=== PATIENT | male | born 1970 | race Caucasian/White ===

== ENCOUNTER 2023-11-18 13:00 | Inpatient (IN) | payer OTHER, SELFPAY ==
[2023-11-16] VITALS (10 sets, daily range): BP systolic 105–131; BP diastolic 72–88; BMI 24.9
[2023-11-16 15:38] LABS: Hematocrit 43.4 % (39.0-52.0); Mean Corp Hgb Conc. 36.9 g/dL (33.0-37.0); Mean Corpuscular Hgb 30.7 pg (27.0-31.0); Mean Corpuscular Volume 83.3 fL (80.0-94.0); Mean Platelet Volume 9.4 fL (7.4-10.4); Platelet Count 309 10^3/uL (130-400); Red Blood Cell Count 5.21 10^6/uL (4.70-6.10); Red Cell Dist. Width 12.3 % (11.5-14.5); White Blood Cell Count 24.8 10^3/uL (4.8-10.8)
--- NOTE | 2023-11-16 15:40 | ED.GENMED ---
History of Present Illness
General
Chief Complaint: Abdominal Pain
Source: patient
Exam Limitations: none
Time Seen by Provider: 11/16/23 15:15
Nursing documentation reviewed up to this point in time: agreed with
Travel History
Have you had any contact with someone who has COVID-19?: No
Do you have any symptoms of coronavirus? Fever > 100 degrees, chills, cough, shortness of breath, sore throat, loss of taste or smell, muscle aches, or headache?: No
History of Present Illness
History of Present Illness:
PPatient to ED with complaint of RLQ abdominal pain. Symptoms started Wed night. He reports hanging a heavy TV earlier on . Boyd fine. Wed eveining he reported generalized abdominal pain. Saturday AM pain was worsening. Vomitid 3 times.
he continued to have vomiting, reports fever(subjective) and chills. no diarrhea. States he thought he was constipated so he took Miralax this AM. BM x 1 without blood. Brought to ED by spouse for eval. Pain is now localized to RLQ.
Past History
Past History
ED Past Medical History: Psychiatric
ED Past Surgical History: Other (eyelid surgery)
Social History
Tobacco: Non-smoker
Alcohol: Occasional
Drug: None
Personal:
Living: with family
Employment: Employed
Review of Systems
Review of Systems
Allergies reviewed?: Yes
All Other Systems: ROS reviewed and negative except as documented in HPI and ROS
Constitutional: Reports chills
EENT: Reports no symptoms
Respiratory: Reports no symptoms
Cardiac: Reports no symptoms
ABD/GI: Reports abdominal pain (RLQ pain ), nausea and vomiting
: Reports no symptoms
Musculoskeletal: Reports no symptoms
Skin: Reports no symptoms
Neurological: Reports no symptoms
Psychiatric: Reports no symptoms
Phy Exam
General Physical Exam
General Presentation: well appearing and mild distress
General age: appears stated age
General Skin: warm and dry
General Habitus: normal
General Mental: alert
General Hydration: appears well hydrated
Cardiovascular Exam
Cardiovascular Exam: regular rate/rhythm and no edema
Gastrointestinal Exam
Gastrointestinal Exam: normal bowel sounds, no pulsatile mass, non distended, no cva tenderness and guarding
Palpation: left upper quadrant: No tenderness, left lower quadrant: No tenderness, right upper quadrant: Mild tenderness and right lower quadrant: Moderate tenderness
Musculoskeletal Exam
Musculoskeletal Exam: full ROM and neuro vasc intact
Skin Exam
Skin Exam: normal color, warm/dry and no rash
Psychiatric Exam
Psychiatric Exam: normal mood/affect
Course
Orders/Labs/Results
Orders:
Orders
11/16/23 Dinner
Regular
11/16/23 15:28
Complete Blood Count/With Diff Urgent
Comprehensive Metabolic Panel Urgent
Lipase Urgent
Comment: LIPASE ADDED ON BY FLOOR 4:20PM 11-16-23
Manual Differential Urgent
11/16/23 15:32
Urinalysis Reflex To Culture Urgent
Date Specimen was Collected: 11/16/23
Time Specimen was Collected: 15:27
Urine Microscopic Reflex Cult Urgent
11/16/23 15:39
0.9% Sodium Chloride 1000 ml [Nss] 1,000 ml IV BOLUS
HYDROmorphone [Dilaudid] 0.5 mg IV NOW STA
Iohexol [Omnipaque] See Protocol PO NOW STA
Ondansetron Injectable [Zofran] 4 mg IV NOW STA
11/16/23 15:40
CT Abd/pel W Iv And Oral Contr Urgent
Comment:
Reason For Exam: RLQ abdominal pain
11/16/23 16:16
Piperacillin/Tazo 3.375 Gram [Zosyn] 3.375 gram in 50 ml IV NOW
11/16/23 16:26
Lactic Acid Urgent
11/16/23 18:34
0.9% Sodium Chloride 1000 ml [Nss] 1,000 ml IV BOLUS
11/16/23 18:58
HYDROmorphone [Dilaudid] 0.5 mg IV NOW STA
11/16/23 19:25
Admit/Transfer Patient As Directed
Co-Sign Provider:
Level of Care: Observation services
Assign to:: Medical/Surgical
Physician / Group: Kee Montelongo
Diagnosis: Acute Appendicitis without perforation
11/16/23 19:27
Code Status As Directed
Resuscitation Status: Full Code
11/16/23 20:56
Lactated Ringers [Lr] 1,000 ml IV 100 mls/hr
11/16/23 20:56
Activity As Directed
Activity Level: Out of Bed-Early Mobility
Anti-embolism (YUN) Hose As Directed
Type: Thigh high
Intake/ Output As Directed
Frequency: Per unit guidelines
Pneumatic Compression Sleeves As Directed
Type: Thigh high
Vital Signs As Directed
Frequency: Per unit guidelines
Rx Incentive Spirometry [RESP] Routine
Frequency: q1h while awake
# of times per hour: 10
DX Deep Vein Thrombosis Video Routine
11/17/23 00:00
Piperacillin/Tazo 3.375 Gram [Zosyn] 3.375 gram in 50 ml IV Q6
11/17/23 Breakfast
NPO
Allow oral meds: Yes
Allow clear liquids: No
NPO with Ice Chips: No
Complete Blood Count/With Diff IN AM
Comprehensive Metabolic Panel IN AM
Abnormal Lab Results
11/16/23 11/16/23
15:28 15:32
WBC 24.8 H 10^3/uL
(4.8-10.8)
Abs Neuts (Manual) 22.3 H 10^3/uL
(1.4-6.5)
Segmented Neutrophils 88 H %
(42-75)
Lymphocytes (Manual) 8 L %
(20-51)
Sodium 134 L mmol/L
(135-145)
Creatinine 0.5 L mg/dL
(0.7-1.3)
Glucose 151 H mg/dl
(70-99)
Total Bilirubin 1.6 H mg/dl
(0.2-1.3)
Urine Ketones 1+ A
(Negative)
Ur Occult Blood Reflex Trace A
(Negative)
Urine Bilirubin 1+ A
(Negative)
Urine Urobilinogen 4+ A
(Neg - 1+)
Leukocyte Esterase Rfl Trace A
(Negative)
Urine Bacteria (Reflex) Few A
(Negative)
Urine Albumin (Reflex) 1+ A
(Neg - Trace)
11/16/23 15:28
11/16/23 15:28
Vital Signs
Initial and Last Documented VS:
Initial Vital Signs
Temp Pulse Resp BP Pulse Ox
98.3 F 141 18 131/88 98
11/16/23 15:12 11/16/23 15:12 11/16/23 15:12 11/16/23 15:12 11/16/23 15:12
Last Documented Vital Signs
Temp Pulse Resp BP Pulse Ox
98.3 F 114 18 124/83 98
11/16/23 20:55 11/16/23 20:55 11/16/23 20:55 11/16/23 20:55 11/16/23 20:55
*Radiology
Radiology exam reviewed: radiology read reviewed
*Pulse Oximetry
Patient hypoxic: no
*Critical Care Note
Total Time (30-74mins, 75-104mins- exclusive of procedures): Not Applicable
Update Note
Update Note:
Radiology report: acute appendicitis. Dr. Reginald notified. Requests admission to his service. NPO, continue Zosyn, IVF. For OR in AM. House provider notified and admission completed.
ED Attending Note
-
Portions of this chart may have been created with voice recognition software.� Occasional wrong word or��sound alike� substitutions may have occurred due to the inherent limitations of voice recognition software.
Discharge Plan
Departure
Patient Disposition: Admit
Date of Disposition: 11/16/23
Time of Disposition: 18:58
Presentation/result/management discussed w/ accepting MD/DO: Dr. Montelongo
Patient with high blood pressure during this ER visit?: No
Condition: Fair
Covid-19: Not Applicable
Discharge Problem:
Acute appendicitis
Interventions
Interventions:
*Risk Screen - Suicide Last Done: 11/16/23 19:59
*General Assessment Last Done: 11/16/23 19:59
*Neglect/Abuse Screening Last Done: 11/16/23 19:59
*ED COVID-19 Vaccine History Last Done: 11/16/23 19:59
*Nursing Disposition Last Done: 11/16/23 20:56
YT-Osrlng-Mxcipgbpje Assessment Last Done: 11/16/23 15:36
Discharge Date and Time
Discharge Date/Time: 11/16/23 20:56
[2023-11-16 15:44] LABS: Urine Albumin 1+ (Neg - Trace); Urine Bilirubin 1+ (Negative); Urine Character Clear (Clear); Urine Glucose Negative (Negative); Urine Ketone 1+ (Negative); Urine Leukocyte Trace (Negative); Urine Nitrite Negative (Negative); Urine Occult Blood Trace (Negative); Urine Urobilinogen 4+ (Neg - 1+)
[2023-11-16 15:46] LABS: Urine Color Orange
[2023-11-16] MEDS: OMNIPAQUE 50 ML PO (15:47)
[2023-11-16] MEDS: ZOFRAN 4 MG IV (15:47)
[2023-11-16] MEDS: DILAUDID 0.5 MG IV ×2 (15:48→19:02)
[2023-11-16] MEDS: NSS 1000 IV ×2 (15:48→18:35)
[2023-11-16 15:51] LABS: Urine Bacteria Few (Negative); Urine Mucus Many; Urine Red Blood Cell 0-2 /HPF (0-2)
[2023-11-16 15:52] LABS: ALT (SGPT) 37 U/L (0-50); AST (SGOT) 37 U/L (17-59); Albumin 4.4 g/dl (3.5-5.0); Alkaline Phosphatase 119 U/L (38-126); Blood Urea Nitrogen 14 mg/dl (9-20); Calcium 9.1 mg/dl (8.4-10.2); Carbon Dioxide 22 mmol/L (22-30); Chloride 103 mmol/L (98-107); Glucose 151 mg/dl (70-99); Potassium 3.7 mmol/L (3.5-5.1); Sodium 134 mmol/L (135-145); Total Bilirubin 1.6 mg/dl (0.2-1.3); Total Protein 7.8 g/dl (6.3-8.2); eGFR > 60.00
[2023-11-16 16:19] LABS: Absolute Neutrophils -Man Diff 22.3 10^3/uL (1.4-6.5); Band Neutrophils 2 % (0-3); Lymphocytes 8 % (20-51); Monocytes 2 % (2-9); Segmented Neutrophils 88 % (42-75)
[2023-11-16 16:20] LABS: Normal RBC Morphology Yes; Platelets Checked Yes; Total Cells Counted 100
[2023-11-16] MEDS: ZOSYN 50 IV ×2 (16:26→23:18)
[2023-11-16 16:45] LABS: Lactic Acid 1.4 mmol/L (0.7-2.0)
[2023-11-16 16:52] LABS: Lipase 25 U/L (23-300)
--- NOTE | 2023-11-16 19:55 | HP.FOC2 ---
Addendum entered and electronically signed by Kee Montelongo MD 11/17/23 08:50:
I saw and examined the patient independently.
The Credit Counselor's note was reviewed and I agree with the note, assessment and plan except where noted below.
Comment: This is a 52-year-old male who presents with hypogastric abdominal pain now more focal to the right lower quadrant pain that began Saturday night. Associated nausea vomiting, fevers at home as well as diarrhea. Exam, imaging and blood
work all consistent with likely ruptured appendicitis with free fluid in the right paracolic gutter and focal peritonitis extending from the right lower quadrant up to the right upper quadrant.
Will plan for a laparoscopic appendectomy today.
N.p.o., IV fluids, IV Zosyn.
Risks/Benefits/Alternatives, expected postoperative course and possible complications (bleeding, infection, injury to surrounding structures, acute/chronic pain, likely need of a drain) discussed at length. Patient wishes to proceed with surgery.
All questions answered. Consent obtained.
I spent roughly 75 minutes in total for the care of this patient today including direct patient care and counseling, reviewing labs, imaging, coordination of care, as well as documentation.
Original Note:
Focused History & Physical
Chief Complaint
HPI:
Chief Complaint: abdominal pain
HPI / Indication for Planned Procedure: 52 yom comes in with RLQ abdominal pain started on Saturday night, initially thought it was hernia from lifting heavy TV earlier in the day. vomited x3, Saturday continued with vomiting and subjective
fever and chills. Last BM this morning. Currently rates pain 8/10 with movement and 1/[address] findings compatible with appendicitis with a high degree of confidence. There is adjacent edema with no evidence of a localized abscess.
7 mm cyst within the superior left lobe liver, for which no further imaging follow-up is recommended.
Relevant Past Medical History: Other (Depression)
Relevant Social History: Negative
Relevant Family History: Negative
Relevant Past Surgical History: Negative
Review of Systems
Review of Pertinent Systems: All Systems Negative Except for the Following Positives (RLQ abdominal pain, + fever +chills)
Medication
See Medication form for detailed medications: Yes
Medication List (including Herbals & OTC):
Cymbalta - unknown dose QD
Medications Reviewed: Yes
Allergies and Reactions
Patient has Allergies: No
Noted Allergies and Reactions:
Allergy/AdvReac Type Severity Reaction Status Date / Time
No Known Allergies Allergy Unverified 11/16/23 15:13
Pertinent Physical Exam
All Other Systems: Negative
Head/Neck: Normal
Lungs: Normal
Heart: Normal
Abdomen: Other (RLQ pain)
Extremities: Normal
Neurological: Normal
Diagnosis / Assessment
Acute appendicitis - without perforation
Plan / Procedure
Admit to service Dr. Kee Montelongo
M/S
#Appendicitis
NPO after midnight
LR 100ml/hr
Zosyn q6hr
WBC 24.8
CBC BMP in AM
Pain control - dilaudid 0.5mg prn, Toradol 15mg prn
#Depression - continue Cymbalta - dose unknown at this time.
Full code
DVT prof - SCD
[2023-11-16] MEDS: TORADOL 15 MG IV (21:34)
[2023-11-16] MEDS: LR 1000 IV (21:34)
[2023-11-16] MEDS: DILAUDID 1 MG IV (23:18)
[2023-11-17] VITALS (14 sets, daily range): BP systolic 0–131; BP diastolic 72–84
[2023-11-17] MEDS: ZOSYN 50 IV ×4 (05:04→23:24)
[2023-11-17] MEDS: DILAUDID 1 MG IV ×4 (05:32→23:18)
[2023-11-17 07:18] LABS: % Basophils 0.3 % (0-2); % Eosinophils 0.2 % (0-6); % Immature Granulocytes 0.4 % (0-0.5); % Lymphocytes 7.4 % (20.5-51.1); % Monocytes 6.3 % (1.7-9.3); % Neutrophils 85.4 % (42.2-75.2); Absolute Basophils 0.1 10^3/uL (0-0.2); Absolute Immature Granulocytes 0.1 10^3/uL (0-0.05); Absolute Lymphocytes 1.2 10^3/uL (1.2-3.4); Absolute Neutrophils 13.9 10^3/uL (1.4-6.5); Hematocrit 37.7 % (39.0-52.0); Hemoglobin 13.2 g/dL (13.0-18.0); Mean Corpuscular Hgb 30.6 pg (27.0-31.0); Mean Corpuscular Volume 87.3 fL (80.0-94.0); Mean Platelet Volume 10.1 fL (7.4-10.4); Nucleated Red Blood Cells % 0 % (-); Platelet Count 267 10^3/uL (130-400); Red Blood Cell Count 4.32 10^6/uL (4.70-6.10); Red Cell Dist. Width 12.7 % (11.5-14.5); White Blood Cell Count 16.3 10^3/uL (4.8-10.8)
[2023-11-17 08:05] LABS: ALT (SGPT) 26 U/L (0-50); AST (SGOT) 25 U/L (17-59); Albumin 3.3 g/dl (3.5-5.0); Alkaline Phosphatase 105 U/L (38-126); Blood Urea Nitrogen 14 mg/dl (9-20); Calcium 7.7 mg/dl (8.4-10.2); Carbon Dioxide 25 mmol/L (22-30); Chloride 103 mmol/L (98-107); Estimated Creatinine Clearance > 125 ml/min; Glucose 97 mg/dl (70-99); Potassium 3.4 mmol/L (3.5-5.1); Sodium 134 mmol/L (135-145); Total Bilirubin 1.3 mg/dl (0.2-1.3); eGFR > 60.00
--- NOTE | 2023-11-17 10:54 | W.SUR.PREOP ---
Pre-Operative Surgical Note
-
I have examined this patient prior to the performance of the scheduled procedure.
The patient's condition is unchanged from the time of the current History and
Physical and the patient is able to undergo the scheduled procedure.
--- NOTE | 2023-11-17 10:54 | W.IMMPOSTOP ---
Surgical Immed Post Op Note
-
Primary Surgeon: Kee Montelongo MD
Assisting Surgeon: None
Pre-op Diagnosis: Acute appendicitis
Post-op Diagnosis: Perforated appendicitis
Procedure Performed: Laparoscopic appendectomy
Anesthesia Type: General
Specimen / Cultures:
1. Right lower quadrant wound culture
2. Appendix (in 2 pieces)
Estimated Blood Loss: 7 cc
Complications: None
Operative Findings: Perforated appendicitis with focal purulent and feculent peritonitis. Appendix rupture to mid body, after some minimal ileocecal mobilization the appendiceal stump was identified and traced to its origin at the cecum where he
was ligated with 0 PDS suture x 2.
POST OP PLAN:
Imaging: None
Labs: Routine AM
Diet: Clears today, will advance to Regular as tolerated
Analgesia: Tylenol 650mg q6 Linda, Mary 5mg q6 PRN, Dilaudid 0.5mg q2h PRN
Neuro/vascular checks: q4h
AC/AP: Hold Therapeutic AC, Ok for DVT PPx
Activity: Ad Trinidad
Wound/Incisions/Drains: Routine, LUPIS to bulb suction
Abx: Zosyn or p.o. equivalent x 7 days
Dispo: RNF, anticipate discharge home tomorrow with a LUPIS bulb.
--- NOTE | 2023-11-17 10:57 | OR.RPT ---
Operative Report
Operative Report
Patient Name: Bob Ma
: 1970
Date of Operation: 11/17/2023
Preoperative Diagnosis: Acute Appendicitis
Postoperative Diagnosis: Perforated appendicitis
Procedure(s):
Laparoscopic Appendectomy
Surgeon(s):
Dr. Montelongo
Bundles Hanger(s):
None
Anesthesia: General
Estimated Blood Loss: 7 cc
Urine Output: None
Drains/Lines/Implants: 19 Turkmen round Baner into the pelvis and up right colic gutter
Specimens:
1. Appendix
2. Right lower quadrant wound culture
HPI/Surgical Indications:
This is a 52 year old male who presents with 4 days of worsening right lower quadrant abdominal pain. Exam, labs and imaging are consistent with acute appendicitis. Risks/Benefits/Alternatives were discussed at length, and the patient agreed to
proceed with surgery.
Findings:
Acute perforated appendicitis, with focal/localized purulent and feculent peritonitis
Procedure Description:
The patient was placed in the supine position, with the left arm tucked, and general anesthesia was induced. The abdomen was prepared and draped in a sterile fashion so as to expose the entire abdomen. A surgical time out was taken. Abdominal access
was obtained with an 12mm infra-umbilical Lana Entry. After confirming no injury on entrance, two additional 5mm ports were placed in the suprapubic area just off midline and in the left lower quadrant. The patient was placed in Trendelenberg with
the right slightly up. There was a phlegmonous area over the right lower quadrant with small bowel/ligament of Treves as well as part of the sigmoid colon socked in over the presumed area of the appendix. The structures were carefully taken down
revealing fairly large abscess pocket. The appendix tip appeared completely gangrenous and was clearly perforated. Wound cultures were taken x 2. The mesentery was identified and ligated with the LigaSure. The distal half of the appendix was
removed and placed just behind the cecum. It was difficult to identify the proximal tip of the appendix pressing down the area we were able to see pus emanating from small ostia this was flush with the base of the cecum so I began freeing up the
cecum from lateral to medial direction. At this point I was able to free off the proximal body of the appendix off of the cecum and then get onto fairly healthy appearing appendix. There were a few stool balls/appendicoliths that fell out of the
appendiceal stump as it was being manipulated, these were removed. The appendix was traced to its origin at the base of the cecum which appeared very healthy. This was ligated using 2-0 PDS Endoloops followed by the LigaSure. The 2 portions of
the appendix were placed in an Endo Catch bag and the specimen was passed off the field. The operative field was irrigated gently and suctioned until clear. There was some diffuse but minimal oozing from the surrounding structures secondary to the
inflammation. I also checked the right upper quadrant which appeared free of any gross contamination as was the pelvis. A 19 Turkmen round Abner drain was then introduced through the suprapubic port and pulled deep into the pelvis and then up the
right colic gutter and secured at the skin with a 2-0 nylon suture. Hemostasis was confirmed and the ports were removed under visualization. The specimen was passed off the field. The umbilical port was closed with a [id number] 0-PDS and the
skin for all three ports was closed with interrupted monocryls and covered with dermabond. The patient was awoken from anesthesia in good condition and transported to the recovery area.
I was the attending physician and performed the procedure with no assistance. I was present for all portions of the case
Kee Montelongo MD
--- NOTE | 2023-11-17 12:00 | PTCARENOTE ---
pt received post op from PACU, post laprascopic appendectomy. AAOX3. denies pain at this time. incision sites CICI with surgical glue, CDI. LUPIS drain lower mid abdomen- small amount of sanguinous drainage. LR infusing at 100 ml/hr.
--- NOTE | 2023-11-17 12:18 | CM ---
CM met with pt and spouse at bedside.
Pt resides with spouse and kids (ages 15 and 17).
Pt is independent at baseline. 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
Pt follows with Dr. Dove and pharmacy is [facility] in [place].
Obs letter reviewed with pt and spouse and signed copy placed on chart. Copy provided.
Discharge dispo home no needs. CM to watch for needs.
[2023-11-17] MEDS: LR 1000 IV ×2 (12:21→21:23)
[2023-11-17] MEDS: TORADOL 15 MG IV (16:13)
[2023-11-17] MEDS: ERYTHROMYCIN 0.5% OPHTHALMIC OINTMENT 1 APPLIC RIGHT EYE ×2 (17:42→21:21)
--- NOTE | 2023-11-17 18:00 | PTCARENOTE ---
pt reports intermittent intense bladder spasms/penis pain that is sharp and burning, Dr Montelongo notified, stated to take LUPIS drain off suction (do not squeeze bulb). pt reports relief after this was done.
[2023-11-17] MEDS: DILAUDID 0.5 MG IV (19:50)
[2023-11-18] MEDS: TORADOL 15 MG IV (00:30)
[2023-11-18 03:31] VITALS: BP 111/75
[2023-11-18] MEDS: DILAUDID 1 MG IV ×4 (04:56→14:59)
[2023-11-18] MEDS: ZOSYN 50 IV ×4 (05:36→23:29)
--- NOTE | 2023-11-18 06:10 | PTCARENOTE ---
Updated Dr Montelongo regards of Patient having c/o intermittent severe pain at the LUPIS drain site down to his penis with ambulation. Medicated with ordered Dilaudid/ Toradol IV with good relief. No pain when resting in bed. kept suction off . 20ml
output from drain. No new orders at this time.
[2023-11-18] MEDS: ERYTHROMYCIN 0.5% OPHTHALMIC OINTMENT 1 APPLIC RIGHT EYE (07:59)
[2023-11-18 08:00] VITALS: BP 121/90
--- NOTE | 2023-11-18 08:51 | W.PN.GS2 ---
Today's Communication / Plan
-
Advance diet
Pain management
Assessment / Plan
-
52 yo male who presented with acute appendicitis now POD #1 lap appi with perforated appendicitis with focal purulent and feculent peritonitis noted in the OR
AFVSS
Labs Pending
+flatus, no nausea or vomiting
Pain secondary to drain
--Will reposition LUPIS drain at bedside
--Increase Dilaudid frequency, will transition to PO agents once pain improved
--Advance to regular diet and follow for tolerance
--Continue IVF until tolerating PO, decreased rate to 75ml/hr
--VTE ppx with lovenox and SCD's
--OOB/Ambulate
--Dispo to home once pain improved and tolerating diet
Subjective Data
-
Date of Service: November 18, 2023
Patient seen and examined at bedside with Dr. Montelongo. Significant pain in the pelvis, somewhat better with release of suction from LUPIS drain. Denies n/v. Passing flatus. Right eye dryness post op, now much improved.
Objective Data
-
Intake and Output
11/17/23 11/18/23 11/19/23
06:59 06:59 06:59
Intake Total 1859 417 / 417
Output Total 635 / 635
Balance 1859 -218 / -218
Intake:
Oral fluids 960 / 960 242 / 242
IV fluids (Total) 900 / 900 75 / 75
norm 75 / 75
IV piggybacks 100 / 100
Output:
Drain Output (Total) 60 / 60
Lower Abdomen Stevie-Doherty 60 / 60
Urine, Voided 575 / 575
Other:
Number of approximated MODERATE 2 1
amounts of urine
Vital Signs
Temp Pulse Resp BP Pulse Ox
97.9 F 96 16 121/90 96
11/18/23 08:00 11/18/23 08:00 11/18/23 08:00 11/18/23 08:00 11/18/23 03:31
Calcium 7.7 mg/dl (8.4-10.2) L 11/17/23 06:01
Total Bilirubin 1.3 mg/dl (0.2-1.3) 11/17/23 06:01
AST 25 U/L (17-59) 11/17/23 06:01
ALT 26 U/L (0-50) 11/17/23 06:01
Alkaline Phosphatase 105 U/L (38-126) 11/17/23 06:01
Total Protein 6.0 g/dl (6.3-8.2) L D 11/17/23 06:01
Albumin 3.3 g/dl (3.5-5.0) L 11/17/23 06:01
Physical Exam
-
Uncomfortable appearing
ABD soft, ND, incisional tenderness
LUPIS with SSF: Increased pain with drain manipulation
[2023-11-18 08:54] LABS: Hematocrit 33.6 % (39.0-52.0); Hemoglobin 11.8 g/dL (13.0-18.0); Mean Corp Hgb Conc. 35.1 g/dL (33.0-37.0); Mean Corpuscular Hgb 30.3 pg (27.0-31.0); Mean Corpuscular Volume 86.4 fL (80.0-94.0); Mean Platelet Volume 10.2 fL (7.4-10.4); Platelet Count 298 10^3/uL (130-400); Red Blood Cell Count 3.89 10^6/uL (4.70-6.10); Red Cell Dist. Width 12.8 % (11.5-14.5); White Blood Cell Count 14.4 10^3/uL (4.8-10.8)
[2023-11-18 09:01] LABS: Blood Urea Nitrogen 16 mg/dl (9-20); Calcium 7.8 mg/dl (8.4-10.2); Carbon Dioxide 26 mmol/L (22-30); Chloride 102 mmol/L (98-107); Estimated Creatinine Clearance > 125 ml/min; Glucose 123 mg/dl (70-99); Magnesium 2.5 mg/dl (1.6-2.3); Potassium 3.3 mmol/L (3.5-5.1); Sodium 137 mmol/L (135-145); eGFR > 60.00
[2023-11-18] MEDS: KLOR-CON 20 MEQ PO (10:23)
[2023-11-18] MEDS: LR 1000 IV (11:14)
[2023-11-18 11:48] VITALS: BP 121/72
[2023-11-18] MEDS: ERYTHROMYCIN 0.5% OPHTHALMIC OINTMENT RIGHT EYE ×3 (12:14→22:18)
--- NOTE | 2023-11-18 12:47 | CM ---
Perforated appendix. Lap appendectomy. LUPIS drain, IV dilaudid. Discharge plan of care: Home with no needs vs home with HH VN. Will follow medical progression.
[2023-11-18 15:56] VITALS: BP 133/92
--- NOTE | 2023-11-18 16:29 | W.PN.UPDATE ---
Update Note
Progress Note Update
S: Patient has been c/o intense pain secondary to drain since immediate post op period. Unable to place drain to bulb suction given pain level. Increased Dilaudid frequency this am without much relief.
B: Pelvic LUPIS drain was left in place post operatively given feculent peritonitis.
A: After Dilaudid was administered, attempted to reposition drain at bedside with Dr. Montelongo, patient with extreme pain during attempts to manipulate drain. Calling out and in distress. Given his extreme pain and inability to tolerate the drain, it
was removed at bedside. No erythema to site. Minimal SSF in LUPIS bulb.
R: Risk for abscess. Will continue IV ABX and follow closely.
[2023-11-18] MEDS: LOVENOX 40 MG SC (17:29)
[2023-11-18] MEDS: LR IV (22:18)
[2023-11-18 23:05] VITALS: BP 120/76
[2023-11-19] MEDS: LR 1000 IV (02:54)
[2023-11-19] MEDS: DILAUDID 1 MG IV ×2 (02:57→08:44)
[2023-11-19 04:54] LABS: Hematocrit 33.6 % (39.0-52.0); Hemoglobin 11.7 g/dL (13.0-18.0); Mean Corp Hgb Conc. 34.8 g/dL (33.0-37.0); Mean Corpuscular Hgb 30.5 pg (27.0-31.0); Mean Corpuscular Volume 87.5 fL (80.0-94.0); Mean Platelet Volume 9.9 fL (7.4-10.4); Platelet Count 314 10^3/uL (130-400); Red Blood Cell Count 3.84 10^6/uL (4.70-6.10); Red Cell Dist. Width 12.7 % (11.5-14.5); White Blood Cell Count 9.9 10^3/uL (4.8-10.8)
[2023-11-19 05:19] LABS: Blood Urea Nitrogen 11 mg/dl (9-20); Calcium 7.8 mg/dl (8.4-10.2); Carbon Dioxide 25 mmol/L (22-30); Chloride 106 mmol/L (98-107); Estimated Creatinine Clearance > 125 ml/min; Glucose 103 mg/dl (70-99); Potassium 3.4 mmol/L (3.5-5.1); Sodium 135 mmol/L (135-145); eGFR > 60.00
[2023-11-19] MEDS: ZOSYN 50 IV ×2 (05:29→11:47)
[2023-11-19 07:27] VITALS: BP 134/86
[2023-11-19] MEDS: ERYTHROMYCIN 0.5% OPHTHALMIC OINTMENT RIGHT EYE ×3 (08:42→12:10)
[2023-11-19] MEDS: TORADOL 15 MG IV (08:43)
[2023-11-19] MEDS: FLUSH (NSS) 1 FLUSH IV (08:44)
--- NOTE | 2023-11-19 09:16 | W.PN.GS2 ---
Today's Communication / Plan
-
--Regular diet
--Pain: Tylenol, Toradol, start Oxycodone, IV Dilaudid PRN
--Abx: Zosyn, transition to Augmentin for 7 days on DC
Assessment / Plan
-
52 yo male who presented with acute appendicitis now POD #2 lap appy with perforated appendicitis with focal purulent and feculent peritonitis noted in the OR
AFVSS
WBC normalized
+flatus, no nausea or vomiting
Pain secondary to drain
--Regular diet
--Pain: Tylenol, Toradol, Oxycodone, IV Dilaudid PRN
--Abx: Zosyn, transition to Augmentin for 7 days on DC
--HLIV
--VTE ppx with Lovenox and SCD's
--OOB/Ambulate
--Dispo to home once pain improved and tolerating diet
Subjective Data
-
Date of Service: November 19, 2023
Imaging
6. Abdominal pain improved post removal. No nausea or vomiting. Tolerating regular diet, reports BMs and passing flatus. No fevers. Ambulating.
Objective Data
-
Intake and Output
11/18/23 11/19/23 11/20/23
06:59 06:59 06:59
Intake Total 1117 / 1117 2840 / 2840
Output Total 635 / 635 1220 / 1220
Balance 482 / 482 1620 / 1620
Intake:
Oral fluids 242 / 242 880 / 880
IV fluids (Total) 775 / 775 1760 / 1760
norm 75 / 75
IV piggybacks 100 / 100 200 / 200
Output:
Drain Output (Total) 60 / 60 20 / 20
Lower Abdomen Stevie-Doherty 60 / 60 20 / 20
Urine, Voided 575 / 575 1200 / 1200
Other:
Number of approximated MODERATE 1 1
amounts of urine
Vital Signs
Temp Pulse Resp BP Pulse Ox
98.0 F 104 16 134/86 99
11/19/23 07:27 11/19/23 07:27 11/19/23 07:27 11/19/23 07:27 11/19/23 07:27
Lab Results
11/19/23 04:14
11/19/23 04:14
Calcium 7.8 mg/dl (8.4-10.2) L 11/19/23 04:14
Magnesium 2.5 mg/dl (1.6-2.3) H 11/18/23 07:37
Total Bilirubin 1.3 mg/dl (0.2-1.3) 11/17/23 06:01
AST 25 U/L (17-59) 11/17/23 06:01
ALT 26 U/L (0-50) 11/17/23 06:01
Alkaline Phosphatase 105 U/L (38-126) 11/17/23 06:01
Total Protein 6.0 g/dl (6.3-8.2) L D 11/17/23 06:01
Albumin 3.3 g/dl (3.5-5.0) L 11/17/23 06:01
Physical Exam
-
Gen: NAD
Abd: soft, mild tenderness, ND, non-peritoneal, incisions c/d/i - no erythema, ecchymosis or drainage, LUPIS site dressing c/d/i
--- NOTE | 2023-11-19 09:20 | W.DS.TRANS ---
Addendum entered and electronically signed by ENRIQUE Flowers 11/25/23 10:36:
Correction to below: There are no changes to the patient's home meds
Addendum entered and electronically signed by ENRIQUE Flowers 11/22/23 10:12:
#[id number]
Original Note:
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
-
Discharge Instructions:
Discharge Diagnosis/Procedures Appendicitis status post laparoscopic
appendectomy
Activity No strenuous activity
Instructions:
Stand-Alone Forms:
Changes to Home Medications: Yes
Discharge Medications:
DC Medications w/original date entered in [employer]
acetaminophen 325 mg tablet 650 mg PO Q4HPRN PRN mild pain #1 tab 11/19/23
amoxicillin 875 mg-potassium clavulanate 125 mg tablet 1 tab PO Q12 antibiotic 7 days #14 tabs 11/19/23
ibuprofen 200 mg tablet 400 - 600 mg PO Q6HPRN PRN moderate pain #1 tab 11/19/23
oxycodone 5 mg tablet 5 mg PO Q4HPRN PRN breakthrough/severe pain #10 tabs 11/19/23
Home Medication Changes
Pending Results: No
--- NOTE | 2023-11-19 09:54 | CM ---
Patient has been medically cleared for discharge to home with no additional skilled services. Patient has arranged for transport home.
[2023-11-19] MEDS: FLUZONE QUAD 2023-2024 SYRINGE 0.5 ML IM (12:06)
== END 2023-11-19 13:10 | disposition home or self-care (01) | DRG 399 ==
LOC: 2 SOUTH 13:00
PROVIDERS: Nurse Practitioner; Nurse Practitioner Gerontology; Registered Nurse; Surgery; ADMITTING PHYSICIAN Surgery; EMERGENCY PHYSICIAN Emergency Medicine; FAMILY PHYSICIAN Family Medicine
PROC: 0DTJ4ZZ Resection of Appendix, Percutaneous Endoscopic Approach (ICD-10-PCS; 2023-11-17)
PROC: 3E02340 Introduction of Influenza Vaccine into Muscle, Percutaneous Approach (ICD-10-PCS; 2023-11-19)
DX: K35.32 Acute appendicitis with perforation, localized peritonitis, and gangrene, without abscess (principal); F32.A Depression, unspecified; K76.89 Other specified diseases of liver; Z23 Encounter for immunization
CPT/HCPCS: 88304; 74177; 80048; 80053; 81003; 81015; 83605; 83690; 83735; 85025; 85027; 87070; 87075; 87076; 87077; 87185; 87205; 90686; 96361; 96365; 96375; 96376; 99285; G0008; Q9967

== ENCOUNTER → 2024-01-29 06:51 | Outpatient (REF) | payer OTHER, SELFPAY | LOC: RAD 06:51 | PROVIDERS: ATTENDING PHYSICIAN Family Medicine | DX: R10.33 Periumbilical pain (principal); Z90.49 Acquired absence of other specified parts of digestive tract | CPT/HCPCS: 74176 ==

== ENCOUNTER → 2024-05-08 17:54 | Outpatient (REF) | payer OTHER, SELFPAY | LOC: MRI 3T 17:54 | PROVIDERS: ATTENDING PHYSICIAN Family Medicine | DX: R42 Dizziness and giddiness (principal); G43.911 Migraine, unspecified, intractable, with status migrainosus | CPT/HCPCS: 70553; A9575 ==